=== PATIENT | male | born 1935 | race American Indian/Alaskan Native ===

== ENCOUNTER 2018-04-30 11:00 | Outpatient (CLI) | payer MEDICARE | END 2018-04-30 11:01 | disposition home or self-care (01) | LOC: SLR 11:00 | PROVIDERS: ATTEND Otolaryngology | DX: G47.30 Sleep apnea, unspecified (principal); R06.83 Snoring; R40.0 Somnolence | CPT/HCPCS: 95810 ==

== ENCOUNTER 2018-05-28 11:00 | Outpatient (CLI) | payer MEDICARE | END 2018-05-28 11:01 | disposition home or self-care (01) | LOC: SLR 11:00 | PROVIDERS: ATTEND Otolaryngology | DX: G47.33 Obstructive sleep apnea (adult) (pediatric) (principal) | CPT/HCPCS: 95811 ==

== ENCOUNTER 2019-03-25 07:21 | Day surgery (SDC) | payer MEDICARE ==
[2019-03-25] MEDS ORDERED: NACL 0.9% 1000 ML 1,000 ML ONE (08:05)
[2019-03-25] MEDS: NACL 0.9% 1000 ML 1,000 ML IV SCH ×2 (08:39→09:30)
--- NOTE | 2019-03-25 09:59 | Anesthesia Consultation ---
Anesthesia Consult and Med Hx Date of service: 03/25/19 - Airway Anesthetic Teeth Evaluation: Dentures ROM Head & Neck: Adequate Mental/Hyoid Distance: Adequate Mallampati Class: Class III Intubation Access Assessment: Probably Good - Pulmonary Exam CTA: Yes - Cardiac Exam Cardiac Exam: RRR - Pre-Operative Health Status ASA Pre-Surgery Classification: ASA3 Proposed Anesthetic Plan: General, MAC - Pulmonary Hx Smoking: No Hx Respiratory Symptoms: No SOB: No Hx Sleep Apnea: Yes - Cardiovascular System Hx Hypertension: Yes Hx Angina: No - Central Nervous System CVA: No - Gastrointestinal Hx Gastroesophageal Reflux Disease: No - Endocrine Hx Renal Disease: No Hx Cirrhosis: Yes (with esophageal varices) Hx Liver Disease: Yes Hx Insulin Dependent Diabetes: No Hx Non-Insulin Dependent Diabetes: No Hx Thyroid Disease: No - Other Systems Hx Cancer: No - Additional Comments Anesthesia Medical History Comments: No GAC, No FHAC
--- NOTE | 2019-03-25 09:59 | Anesthesia Day of Surgery ---
Anesthesia Day of Surgery - Day of Surgery Patient Examined: Yes Patient H&P Reviewed: Yes Patient is NPO: Yes Beta Blockers: No Cardiac Clearance: No Pulmonary Clearance: No
[2019-03-25] MEDS ORDERED: DIPRIVAN 10 MG/ML IV ONE (10:36)
--- NOTE | 2019-03-25 10:58 | Short Stay Summary ---
Short Stay Documentation Date of service: 03/25/19 - History H&P: obtained from office - Allergies and Medications Current Medications: Allergies No Known Allergies Allergy (Unverified 07/21/18 00:44) Home Medications Medication Instructions Recorded Confirmed Last Taken Type Aspirin 81 mg PO DAILY 07/21/18 03/25/19 03/18/19 20:00 History AtorvaSTATin [Lipitor] 1 tab PO HS 07/21/18 03/25/19 03/24/19 History Tamsulosin 0.4 mg PO DAILY 07/21/18 03/25/19 03/24/19 20:00 History Active Medications Sodium Chloride (Nacl 0.9% 1000 Ml) 1,000 mls @ 50 mls/hr IV DIRECT LOGAN Last Admin: 03/25/19 09:30 Dose: 50 mls/hr Documented by: - Brief post op/procedure progress note Date of procedure: 03/25/19 Post-op diagnosis: same Procedure: see dictated report Findings: see dictated report Estimated blood loss: none Pathology: none Condition: stable - Disposition Condition at discharge: Good Disposition: DC-01 TO HOME OR SELFCARE - Discharge Diagnoses (1) Esophageal varices in cirrhosis Status: Acute Short Stay Discharge Plan Activity: other (no driving for 24 hours) Weight Bearing Status: Weight Bear as Tolerated Diet: regular Follow up with: MAGDY LEDESMA MD [Primary Care Provider] - 7 Days
--- NOTE | 2019-03-25 11:00 | Operative Report ---
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 History of esophageal varices. Post procedure diagnosis: Normal study with no visible varices in the stomach or esophagus Endoscopist: Dr. Craig Anesthesia: Monitored anesthesia care per anesthesia department Medications: Propofol per anesthesia Estimated blood loss: And rolled After careful discussion of the nature and purpose of the procedure as well as details the technique risks benefits and alternatives consent was obtained. The patient was placed in the left lateral decubitus position and medicated per anesthesia. The tip of the Flutter EQ 570 video scope was passed per orum under direct vision into the esophagus and advanced into the stomach and descending duodenum. The descending duodenum the duodenal bulb and pylorus were symmetrical and normal. The scope was withdrawn into the stomach and the stomach then gently insufflated with air. The antrum was normal. The stomach was further insufflated and the scope was then retroflexed and partially withdrawn. The cardia, fundus, and body of the stomach were within normal limits and easily distensible.The scope was then withdrawn in the forward position. The esophagogastric junction was at 40 cm. The esophageal body was normal throughout. The procedure was was well tolerated and the patient was observed in recovery. Impressions: Normal endoscopy. No varices seen in the esophagus or stomach. Plan: Consider repeat endoscopy in one to 2 years. Continue present medications. Office follow-up in 6 months. Electronically signed: Christopher Craig MD
[2019-03-25 12:13] VITALS: BP 159/94
--- NOTE | 2019-03-25 13:47 | Post Anesthesia Evaluation ---
- Post Anesthesia Evaluation Patient Participated: Yes Airway Patent: Yes Stable Respiratory Function: Yes Nausea/Vomiting: No Temp > 96.8F: Yes Pain Manageable: Yes Adequeate Hydration: Yes Anesthesia Complications: No Block Receding Appropriately: Not Applicable Patient on Ventilator: No
== END 2019-03-25 07:22 | disposition home or self-care (01) ==
LOC: GIO 07:21
PROVIDERS: ATTEND Internal Medicine Gastroenterology
DX: K74.60 Unspecified cirrhosis of liver (principal); I85.00 Esophageal varices without bleeding; E78.00 Pure hypercholesterolemia, unspecified; I10 Essential (primary) hypertension; G47.30 Sleep apnea, unspecified; M19.90 Unspecified osteoarthritis, unspecified site; Z96.641 Presence of right artificial hip joint; Z79.82 Long term (current) use of aspirin; Z79.899 Other long term (current) drug therapy; Z98.890 Other specified postprocedural states
CPT/HCPCS: 43235; J2704; J7030

== ENCOUNTER 2020-09-27 09:52 | Emergency (ER) | payer MEDICARE ==
[2020-09-27 10:16] VITALS: BP 156/83
--- NOTE | 2020-09-27 11:15 | XRay Report ---
CHEST 2 VIEWS INDICATION: SOB, cough. COMPARISON: None FINDINGS: Support devices: None. Heart: Within normal limits. Lungs/pleura: No acute air space or interstitial disease. No pneumothorax. Additional findings: None. IMPRESSION: No acute findings. Signer Name: Scooter Obregon Jr, MD Signed: 09/27/2020 11:11 AM Workstation Name: [id number]
--- NOTE | 2020-09-27 13:02 | Emergency Department Report ---
ED General Adult HPI - General Chief complaint: Upper Respiratory Infection Stated complaint: SNEEZING/EYES WATERY Time Seen by Provider: 09/27/20 12:06 Source: patient Mode of arrival: Ambulatory Limitations: No Limitations - History of Present Illness Initial comments: This is a pleasant 85-year-old male who presents the emergency department with chief complaint of an episode of drowsiness, sneezing and chills that occurred this morning when he woke up. He states he sneezed every few seconds for a few minutes and that resolved. He states since he has been in the emergency department his symptoms have completely resolved. He has past medical history of hypertension, hyperlipidemia and BPH. He denies any associated fever, nausea, vomiting, diarrhea, headache, dizziness, blurry vision, chest pain, shortness of breath, generalized weakness or any other associated symptoms. - Related Data Home Medications Medication Instructions Recorded Confirmed Last Taken Aspirin 81 mg PO DAILY 07/21/18 03/25/19 03/18/19 20:00 AtorvaSTATin [Lipitor] 1 tab PO HS 07/21/18 03/25/19 03/24/19 Tamsulosin 0.4 mg PO DAILY 07/21/18 03/25/19 03/24/19 20:00 Previous Rx's Medication Instructions Recorded Last Taken Type Fluticasone [Flonase] 1 spray NS QDAY #1 bottle 09/27/20 Unknown Rx Loratadine [Claritin] 10 mg PO DAILY #12 tablet 09/27/20 Unknown Rx Allergies Allergy/AdvReac Type Severity Reaction Status Date / Time No Known Allergies Allergy Unverified 07/21/18 00:44 ED Review of Systems ROS: Stated complaint: SNEEZING/EYES WATERY Other details as noted in HPI Comment: All other systems reviewed and negative Constitutional: see HPI, chills, malaise. denies: fever Eyes: denies: eye pain, eye discharge, vision change ENT: as per HPI, congestion. denies: ear pain, throat pain Respiratory: denies: cough, shortness of breath, wheezing Cardiovascular: denies: chest pain, palpitations Endocrine: no symptoms reported Gastrointestinal: denies: abdominal pain, nausea, diarrhea Genitourinary: denies: urgency, dysuria Musculoskeletal: denies: back pain, joint swelling, arthralgia Skin: denies: rash, lesions Neurological: denies: headache, weakness, paresthesias Psychiatric: denies: anxiety, depression Hematological/Lymphatic: denies: easy bleeding, easy bruising ED Past Medical Hx - Past Medical History Previous Medical History?: Yes Hx Hypertension: Yes Hx Liver Disease: Yes Hx Renal Disease: No Hx Arthritis: Yes Additional medical history: Cardiac Disease, BPH, - Surgical History Past Surgical History?: No - Social History Smoking Status: Never Smoker - Medications Home Medications: Home Medications Medication Instructions Recorded Confirmed Last Taken Type Aspirin 81 mg PO DAILY 07/21/18 03/25/19 03/18/19 20:00 History AtorvaSTATin [Lipitor] 1 tab PO HS 07/21/18 03/25/19 03/24/19 History Tamsulosin 0.4 mg PO DAILY 07/21/18 03/25/19 03/24/19 20:00 History Fluticasone [Flonase] 1 spray NS QDAY #1 bottle 09/27/20 Unknown Rx Loratadine [Claritin] 10 mg PO DAILY #12 tablet 09/27/20 Unknown Rx ED Physical Exam - General Limitations: No Limitations General appearance: alert, in no apparent distress - Head Head exam: Present: atraumatic, normocephalic - Eye Eye exam: Present: normal appearance, PERRL, EOMI Pupils: Present: normal accommodation - ENT ENT exam: Present: normal exam, normal orophraynx, mucous membranes moist, TM's normal bilaterally, normal external ear exam - Neck Neck exam: Present: normal inspection, full ROM. Absent: tenderness, meningismus - Respiratory Respiratory exam: Present: normal lung sounds bilaterally. Absent: respiratory distress, wheezes, rales, rhonchi, stridor - Cardiovascular Cardiovascular Exam: Present: regular rate, normal rhythm, normal heart sounds. Absent: systolic murmur, diastolic murmur, rubs, gallop - GI/Abdominal GI/Abdominal exam: Present: soft, normal bowel sounds. Absent: distended, tenderness, guarding, rigid - Rectal Rectal exam: Present: deferred - Extremities Exam Extremities exam: Present: normal inspection, full ROM, normal capillary refill. Absent: tenderness, calf tenderness - Back Exam Back exam: Present: normal inspection, full ROM. Absent: tenderness, CVA tenderness (R), CVA tenderness (L) - Neurological Exam Neurological exam: Present: alert, oriented X3, CN II-XII intact, normal gait - Psychiatric Psychiatric exam: Present: normal affect, normal mood - Skin Skin exam: Present: warm, dry, intact, normal color. Absent: rash ED Course Vital Signs 09/27/20 10:15 Temperature 98.4 F Pulse Rate 57 L Respiratory 16 Rate Blood Pressure 156/83 [Right] O2 Sat by Pulse 99 Oximetry ED Medical Decision Making - Radiology Data Radiology results: report reviewed, image reviewed XRay Report Signed Patient: JAIME JOSHI MR#: [id number] : 1935 Acct:[id number] Age/Sex: 85 / M ADM Date: 09/27/20 Loc: ED Attending Dr: Ordering Physician: ED MD GRANT Date of Service: 09/27/20 Procedure(s): XR chest routine 2V Accession Number(s): [id number] cc: ED MD GRANT Fluoro Time In Minutes: CHEST 2 VIEWS INDICATION: SOB, cough. COMPARISON: None FINDINGS: Support devices: None. Heart: Within normal limits. Lungs/pleura: No acute air space or interstitial disease. No pneumothorax. Additional findings: None. IMPRESSION: No acute findings. Signer Name: Scooter Patten Jr, MD Signed: 09/27/2020 11:11 AM Workstation Name: [id number] Transcribed By: TTR Dictated By: SCOOTER PATTEN JR, MD Electronically Authenticated By: SCOOTER PATTEN JR, MD Signed Date/Time: 09/27/20 1111 - Medical Decision Making Patient is nontoxic in no acute distress. His vital signs showed he was slightly hypertensive but otherwise normal. He is completely asymptomatic at this time. X-ray was ordered and unremarkable. Suspect the patient symptoms are likely secondary to allergic rhinitis and will treat him with Flonase Claritin recommended he follow-up with his primary care doctor this week return to the emerge department any change or worsening symptoms. He verbalized understanding the diagnosis, treatment plan and follow-up instructions and all of his questions were answered. - Differential Diagnosis uri, bronchitis, pneumonia Critical care attestation.: If time is entered above; I have spent that time in minutes in the direct care of this critically ill patient, excluding procedure time. ED Disposition Clinical Impression: Allergic rhinitis Qualifiers: Allergic rhinitis trigger: other Allergic rhinitis seasonality: seasonal Qualified Code(s): J30.89 - Other allergic rhinitis Disposition: DC- TO HOME OR SELFCARE Is pt being admited?: No Condition: Stable Instructions: Allergic Rhinitis, Adult, [id number] Prescriptions: Loratadine [Claritin] 10 mg PO DAILY #12 tablet Fluticasone [Flonase] 1 spray NS QDAY #1 bottle Referrals: [facility] [Provider Group] - 3-5 Days Time of Disposition: 13:02
== END 2020-09-27 13:07 | disposition home or self-care (01) ==
LOC: ED 09:52
DX: J30.9 Allergic rhinitis, unspecified (principal); I10 Essential (primary) hypertension; M19.91 Primary osteoarthritis, unspecified site; Z79.899 Other long term (current) drug therapy
CPT/HCPCS: 71046

== ENCOUNTER 2020-10-25 12:06 | Emergency (ER) | payer MEDICARE ==
[2020-10-25 12:25] VITALS: BP 139/102
--- NOTE | 2020-10-25 12:53 | Event Note ---
ED Screening Note ED Screening Note: dizziness that began today +diaphoresis no n/v/d no fever no cough no SOB no CP PMHx BPH no allergies This initial assessment/diagnostic orders/clinical plan/treatment(s) is/are subject to change based on patients health status, clinical progression and re- assessment by fellow clinical providers in the ED. Further treatment and workup at subsequent clinical providers discretion. Patient/guardian urged not to elope from the ED as their condition may be serious if not clinically assessed and managed. Initial orders include: labs, EKG, CT head, UA
[2020-10-25 14:03] LABS: Basophils % (Auto) 0.4 % (0.0-1.8); Eosinophils # (Auto) 0.2 K/mm3 (0.0-0.4); Eosinophils % (Auto) 2.5 % (0.0-4.3); Hematocrit 41.2 % (35.5-45.6); Hemoglobin 13.7 gm/dl (11.8-15.2); Lymphocytes # (Auto) 1.9 K/mm3 (1.2-5.4); Lymphocytes % (Auto) 30.3 % (13.4-35.0); Mean Corpuscular HGB Conc 33 % (32-34); Mean Corpuscular Volume 98 fl (84-94); Monocytes # (Auto) 0.5 K/mm3 (0.0-0.8); Monocytes % (Auto) 8.2 % (0.0-7.3); Platelet Count 169 K/mm3 (140-440); Red Blood Count 4.23 M/mm3 (3.65-5.03); Red Cell Distribution Width 14.9 % (13.2-15.2)
[2020-10-25 14:27] LABS: Alanine Aminotransferase 16 units/L (7-56); Albumin 4.1 g/dL (3.9-5); BUN/Creatinine Ratio 11; Blood Urea Nitrogen 16 mg/dL (9-20); Calcium 9.8 mg/dL (8.4-10.2); Hemolysis Index 3
--- NOTE | 2020-10-25 15:12 | Cat Scan Report ---
NONENHANCED CT SCAN OF THE HEAD: INDICATION / CLINICAL INFORMATION: 85 years Male; MAIN. Dizziness; blurred vision TECHNIQUE: Routine CT head without contrast. All CT scans at this location are performed using CT dos e reduction for ALARA by means of automated exposure control. COMPARISON: None. FINDINGS: BRAIN / INTRACRANIAL CONTENTS: No acute hemorrhage, mass effect, midline shift, hydrocephalus, or acu te, large territorial infarct. No chronic infarct or focal atrophy. Normal brain volume and ventricul ar/sulcal size for age. Focal low-attenuation white matter lesions in both cerebral hemispheres due t o chronic small vessel disease CRANIOCERVICAL JUNCTION: No significant abnormality. ORBITS: No significant abnormality of visualized orbits. SINUSES / MASTOIDS: No significant abnormality of the visualized paranasal sinuses or mastoid air esther ls. ADDITIONAL FINDINGS: None. IMPRESSION: No acute focal parenchymal lesion in the brain Signer Name: Joaquín Telles MD Signed: 10/25/2020 3:08 PM Workstation Name: [id number]
== END 2020-10-25 21:13 | disposition left against medical advice (07) ==
LOC: ED 12:06
DX: R42 Dizziness and giddiness (principal); Z53.21 Procedure and treatment not carried out due to patient leaving prior to being seen by health care provider
CPT/HCPCS: 36415; 70450; 80053; 82550; 83735; 84484; 85025; 93005

== ENCOUNTER 2020-11-03 10:13 | Emergency (ER) | payer MEDICARE ==
--- NOTE | 2020-11-03 11:02 | Event Note ---
ED Screening Note ED Screening Note: fatigue and weakness that began a couple of weeks ago no v/d no fever no cough no CP no SOB no abd pain This initial assessment/diagnostic orders/clinical plan/treatment(s) is/are subject to change based on patients health status, clinical progression and re- assessment by fellow clinical providers in the ED. Further treatment and workup at subsequent clinical providers discretion. Patient/guardian urged not to elope from the ED as their condition may be serious if not clinically assessed and managed. Initial orders include: labs, UA, EKG, CXR
--- NOTE | 2020-11-03 11:44 | XRay Report ---
XR chest routine 2V INDICATION / CLINICAL INFORMATION: weakness. COMPARISON: 09/27/2020 FINDINGS: SUPPORT DEVICES: None. HEART /PULMONARY VASCULATURE: No significant abnormality. LUNGS / PLEURA: No significant pulmonary or pleural abnormality. No pneumothorax. ADDITIONAL FINDINGS: No significant additional findings. IMPRESSION: 1. No acute findings. Signer Name: Antelmo Corado MD Signed: 11/03/2020 11:39 AM Workstation Name: [id number]
[2020-11-03 12:00] LABS: Basophils % (Auto) 0.5 % (0.0-1.8); Eosinophils # (Auto) 0.1 K/mm3 (0.0-0.4); Eosinophils % (Auto) 2.3 % (0.0-4.3); Hematocrit 40.4 % (35.5-45.6); Hemoglobin 13.5 gm/dl (11.8-15.2); Lymphocytes # (Auto) 1.7 K/mm3 (1.2-5.4); Lymphocytes % (Auto) 29.5 % (13.4-35.0); Mean Corpuscular HGB Conc 34 % (32-34); Mean Corpuscular Volume 98 fl (84-94); Monocytes # (Auto) 0.5 K/mm3 (0.0-0.8); Monocytes % (Auto) 8.7 % (0.0-7.3); Platelet Count 169 K/mm3 (140-440); Red Blood Count 4.14 M/mm3 (3.65-5.03)
[2020-11-03 12:13] LABS: INR 1.14 (0.87-1.13)
[2020-11-03 12:14] LABS: Partial Thromboplastin Time 28.8 Sec. (24.2-36.6)
[2020-11-03 12:22] LABS: Albumin 4.1 g/dL (3.9-5); Calcium 9.4 mg/dL (8.4-10.2)
--- NOTE | 2020-11-03 12:29 | Emergency Department Report ---
ED Dizziness HPI - General Chief Complaint: Weakness Stated Complaint: WEAKNESS Time Seen by Provider: 11/03/20 11:00 Source: patient, old records reviewed Mode of arrival: Ambulatory Limitations: Other - History of Present Illness Initial Comments: 85-year-old male with a past medical history of hypertension, BPH currently on Flomax, and elevated cholesterol presents to the hospital complains of lightheaded episode this a.m. Last approximately 45 minutes. No associated symptoms. Patient denies spinning sensation, headache, chest pain, shortness of breath, diaphoresis, focal weakness, focal numbness, syncope, nausea, vomiting, decreased p.o. intake, dysuria, melena, or hematochezia. Patient states symptoms have completely resolved and is feeling back to normal. He was here October 25 with similar symptoms and received labs, EKG, CT head but left after initial screening and was not evaluated by PMD prior to discharge. Patient denies cardiac history. As per medical record patient was also here in September and was diagnosed with allergic rhinitis. States he continues to have intermittent runny nose and eyes but came to the ED today secondary to lightheaded episode. - Related Data Home Medications Medication Instructions Recorded Confirmed Last Taken Aspirin 81 mg PO DAILY 07/21/18 03/25/19 03/18/19 20:00 AtorvaSTATin [Lipitor] 1 tab PO HS 07/21/18 03/25/19 03/24/19 Tamsulosin 0.4 mg PO DAILY 07/21/18 03/25/19 03/24/19 20:00 Previous Rx's Medication Instructions Recorded Last Taken Type Fluticasone [Flonase] 1 spray NS QDAY #1 bottle 09/27/20 Unknown Rx Loratadine [Claritin] 10 mg PO DAILY #12 tablet 09/27/20 Unknown Rx Meclizine [Antivert] 25 mg PO TID PRN #30 tablet 11/03/20 Unknown Rx Allergies Allergy/AdvReac Type Severity Reaction Status Date / Time No Known Allergies Allergy Verified 11/03/20 10:16 ED Review of Systems ROS: Stated complaint: WEAKNESS Other details as noted in HPI Comment: All other systems reviewed and negative ED Past Medical Hx - Past Medical History Hx Hypertension: Yes Hx Liver Disease: Yes (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, with esophageal varices) Hx Renal Disease: No Hx Arthritis: Yes Additional medical history: Cardiac Disease, BPH, - Social History Smoking Status: Unknown if ever smoked - Medications Home Medications: Home Medications Medication Instructions Recorded Confirmed Last Taken Type Aspirin 81 mg PO DAILY 07/21/18 03/25/19 03/18/19 20:00 History AtorvaSTATin [Lipitor] 1 tab PO HS 07/21/18 03/25/19 03/24/19 History Tamsulosin 0.4 mg PO DAILY 07/21/18 03/25/19 03/24/19 20:00 History Fluticasone [Flonase] 1 spray NS QDAY #1 bottle 09/27/20 Unknown Rx Loratadine [Claritin] 10 mg PO DAILY #12 tablet 09/27/20 Unknown Rx Meclizine [Antivert] 25 mg PO TID PRN #30 tablet 11/03/20 Unknown Rx ED Physical Exam - General Limitations: Other - Other Other exam information: General: No acute distress Head: Atraumatic Eyes: normal appearance extraocular movements intact without nystagmus ENT: Moist mucous membranes Neck: Normal appearance, no midline tenderness Chest: Clear to auscultation bilaterally CV: Regular rate and rhythm Abdomen: Soft, normal bowel sounds, nontender, nondistended, no rebound or guarding Back: Normal inspection Extremity: Normal inspection, full range of motion Neuro: Alert O x 3, no facial asymmetry, speech clear, no gross motor sensory deficit, [id number] function intact Psych: Appropriate behavior Skin: No rash ED Course Vital Signs 11/03/20 11/03/20 11/03/20 10:17 11:38 11:44 Temperature 98.0 F Pulse Rate 56 L 52 L 50 L Respiratory 18 18 Rate Blood Pressure 172/109 O2 Sat by Pulse 96 98 Oximetry 11/03/20 11/03/20 11/03/20 11:45 12:00 13:00 Temperature Pulse Rate 55 L 46 L 63 Respiratory 16 11 L 13 Rate Blood Pressure 144/79 147/80 135/89 O2 Sat by Pulse 99 98 98 Oximetry - Consultations Consultation #1: 11/03/20 13:31 Case discussed with soft boarder Dr. Ovalles who is familiar with the patient. States patient's most recent cardiac work-up including stress test have been unremarkable. His interpretation of EKG is sinus with PACs and therefore no signs of significant cardiac arrhythmia at this time. Advises to give medications for vertigo and have patient follow-up ED Medical Decision Making - Lab Data Result diagrams: 11/03/20 11:46 11/03/20 11:46 Lab Results 11/03/20 11/03/20 11/03/20 Range/Units 11:46 11:46 11:46 WBC 5.9 (4.5-11.0) K/mm3 RBC 4.14 (3.65-5.03) M/mm3 Hgb 13.5 (11.8-15.2) gm/dl Hct 40.4 (35.5-45.6) % MCV 98 H (84-94) fl MCH 33 H (28-32) pg MCHC 34 (32-34) % RDW 15.0 (13.2-15.2) % Plt Count 169 (140-440) K/mm3 Lymph % (Auto) 29.5 (13.4-35.0) % [place] % (Auto) 8.7 H (0.0-7.3) % Eos % (Auto) 2.3 (0.0-4.3) % Baso % (Auto) 0.5 (0.0-1.8) % Lymph # (Auto) 1.7 (1.2-5.4) K/mm3 [place] # (Auto) 0.5 (0.0-0.8) K/mm3 Eos # (Auto) 0.1 (0.0-0.4) K/mm3 Baso # (Auto) 0.0 (0.0-0.1) K/mm3 Seg Neutrophils % 59.0 (40.0-70.0) % Seg Neutrophils # 3.5 (1.8-7.7) K/mm3 PT (12.2-14.9) Sec. INR (0.87-1.13) APTT (24.2-36.6) Sec. Sodium 140 (137-145) mmol/L Potassium 4.2 (3.6-5.0) mmol/L Chloride 102.6 (98-107) mmol/L Carbon Dioxide 29 (22-30) mmol/L Anion Gap 13 mmol/L BUN 14 (9-20) mg/dL Creatinine 1.4 H (0.8-1.3) mg/dL Estimated GFR 58 ml/min BUN/Creatinine Ratio 10 % Glucose 92 (75-100) mg/dL Calcium 9.4 (8.4-10.2) mg/dL Magnesium 1.90 (1.7-2.3) mg/dL Total Bilirubin 0.70 (0.1-1.2) mg/dL AST 27 (5-40) units/L ALT 14 (7-56) units/L Alkaline Phosphatase 79 (35-129) units/L Total Creatine Kinase 303 H (55-170) units/L Troponin T < 0.010 (0.00-0.029) ng/mL Total Protein 7.4 (6.3-8.2) g/dL Albumin 4.1 (3.9-5) g/dL Albumin/Globulin Ratio 1.2 % TSH (0.270-4.200) mlU/mL Free T4 (0.76-1.46) ng/dL 11/03/20 11/03/20 Range/Units 11:46 12:08 WBC (4.5-11.0) K/mm3 RBC (3.65-5.03) M/mm3 Hgb (11.8-15.2) gm/dl Hct (35.5-45.6) % MCV (84-94) fl MCH (28-32) pg MCHC (32-34) % RDW (13.2-15.2) % Plt Count (140-440) K/mm3 Lymph % (Auto) (13.4-35.0) % [place] % (Auto) (0.0-7.3) % Eos % (Auto) (0.0-4.3) % Baso % (Auto) (0.0-1.8) % Lymph # (Auto) (1.2-5.4) K/mm3 [place] # (Auto) (0.0-0.8) K/mm3 Eos # (Auto) (0.0-0.4) K/mm3 Baso # (Auto) (0.0-0.1) K/mm3 Seg Neutrophils % (40.0-70.0) % Seg Neutrophils # (1.8-7.7) K/mm3 PT 14.4 (12.2-14.9) Sec. INR 1.14 H (0.87-1.13) APTT 28.8 (24.2-36.6) Sec. Sodium (137-145) mmol/L Potassium (3.6-5.0) mmol/L Chloride (98-107) mmol/L Carbon Dioxide (22-30) mmol/L Anion Gap mmol/L BUN (9-20) mg/dL Creatinine (0.8-1.3) mg/dL Estimated GFR ml/min BUN/Creatinine Ratio % Glucose (75-100) mg/dL Calcium (8.4-10.2) mg/dL Magnesium (1.7-2.3) mg/dL Total Bilirubin (0.1-1.2) mg/dL AST (5-40) units/L ALT (7-56) units/L Alkaline Phosphatase (35-129) units/L Total Creatine Kinase (55-170) units/L Troponin T (0.00-0.029) ng/mL Total Protein (6.3-8.2) g/dL Albumin (3.9-5) g/dL Albumin/Globulin Ratio % TSH 1.020 (0.270-4.200) mlU/mL Free T4 1.06 (0.76-1.46) ng/dL - Medical Decision Making Patient is noted to have intermittent bradycardia with a normal BP. He states his medications on record have not changed and these medications do not include a beta-yakov (as per medications available for review). Labs including troponin, thyroid, electrolytes are unremarkable. EKG is similar to previous EKG from October 25. Patient has a nonfocal exam with a negative CT head on October 25. Case discussed with soft boarder was familiar with the patient and reports a previous negative cardiac work-up. Orthostatics are also unremarkable. Patient be discharged home on meclizine in case symptoms represent vertigo and outpatient follow-up with PMD and soft boarder advised Critical Care Time: No Critical care attestation.: If time is entered above; I have spent that time in minutes in the direct care of this critically ill patient, excluding procedure time. ED Disposition Clinical Impression: Dizziness Disposition: DC-01 TO HOME OR SELFCARE Is pt being admited?: No Does the pt Need Aspirin: No Condition: Stable Instructions: Dizziness, [id number] Additional Instructions: Take the medication as prescribed. Follow-up with your doctor and the soft boarder. Return if symptoms worsen as indicated by your discharge instructions. Prescriptions: Meclizine [Antivert] 25 mg PO TID PRN #30 tablet PRN Reason: Vertigo Referrals: PRIMARY CARE, [Primary Care Provider] - 3-5 Days UZAIR OVALLES MD [Staff Physician] - 3-5 Days Time of Disposition: 13:46
[2020-11-03 12:50] LABS: Free T4 (Free Thyroxine) 1.06 ng/dL (0.76-1.46)
[2020-11-03 13:03] VITALS: BP 135/89
== END 2020-11-03 13:55 | disposition home or self-care (01) ==
LOC: ED 10:13
DX: R42 Dizziness and giddiness (principal); I10 Essential (primary) hypertension; M19.90 Unspecified osteoarthritis, unspecified site; Z79.82 Long term (current) use of aspirin; Z79.899 Other long term (current) drug therapy
CPT/HCPCS: 36415; 71046; 80053; 82550; 83735; 84439; 84443; 84484; 85025; 85610; 85730; 93005; 99283

== ENCOUNTER 2021-06-21 17:46 | Emergency (ER) | payer MEDICARE ==
[2021-06-21 20:13] VITALS: BP 174/102
--- NOTE | 2021-06-21 20:21 | Emergency Department Report ---
Blank Doc - Documentation Documentation: 86-year-old male that presents with lower abdominal pain and some bleeding noted today at a colostomy. Patient had procedure last month. 1- This is a initial triage assessment/medical screening only. Full assessment and work-up will be completed once the patient is in proper hospital gown, ED bed and in a private room setting. This initial assessment/diagnostic orders/clinical plan/ treatment(s) is/are subject to change based on pt's health status, clinical progression and re-assessment by fellow clinical providers in the ED. Further treatment and workup at subsequent clinical providers discretion. Patient/guardians urged not to elope from ED as their condition may be serious if not clinically assessed and managed. 2-patient sent to Main ED 3-labs 4-UA
[2021-06-21 20:51] LABS: Basophils % (Auto) 0.6 % (0.0-1.8); Eosinophils # (Auto) 0.2 K/mm3 (0.0-0.4); Eosinophils % (Auto) 3.6 % (0.0-4.3); Hematocrit 37.9 % (35.5-45.6); Hemoglobin 12.7 gm/dl (11.8-15.2); Lymphocytes # (Auto) 2.4 K/mm3 (1.2-5.4); Lymphocytes % (Auto) 35.8 % (13.4-35.0); Mean Corpuscular HGB Conc 34 % (32-34); Mean Corpuscular Volume 90 fl (84-94); Monocytes # (Auto) 0.6 K/mm3 (0.0-0.8); Monocytes % (Auto) 9.4 % (0.0-7.3); Platelet Count 182 K/mm3 (140-440); Red Blood Count 4.21 M/mm3 (3.65-5.03); Red Cell Distribution Width 18.1 % (13.2-15.2)
[2021-06-21 21:01] LABS: Albumin 4.1 g/dL (3.9-5); Calcium 9.6 mg/dL (8.4-10.2)
== END 2021-06-22 23:23 | disposition left against medical advice (07) ==
LOC: ED 17:46
DX: R58 Hemorrhage, not elsewhere classified (principal); Z53.21 Procedure and treatment not carried out due to patient leaving prior to being seen by health care provider
CPT/HCPCS: 36415; 80053; 83690; 85025